=== PATIENT | female | born 1955 | race Caucasian/White ===

== ENCOUNTER 2024-11-16 12:39 | Emergency (ER) | payer MEDICARE, MEDICAID, SELFPAY ==
[2024-11-16 12:52] VITALS: BP 135/93; PULSE 122; TEMP 36.6; O2SAT 98; BMI 24.2
--- NOTE | 2024-11-16 13:05 | ED.GENADUL1 ---
HPI HPI - General Adult General Chief complaint: Extremity Injury, Lower Stated complaint: LT KNEE PAIN Time Seen by Provider: 11/16/24 12:54 Source: patient Mode of arrival: walk-in History of Present Illness HPI narrative: Patient states she fell outdoors on November 07 and indoors on November 12 injuring the left knee each time. Most of her pain is present medially. She has been using a neoprene sleeve to stabilize the knee. Sometimes the knee feels like it is locking up on her and at times it feels unstable. She tried using Voltaren gel a couple times but did not help much. She states that she has better pain relief with [place] balm. She has a history of breast cancer currently receiving monthly IV chemotherapy. Related Data Allergies Allergy/AdvReac Type Severity Reaction Status Date / Time Sulfa (Sulfonamide Allergy Severe Rash Verified 11/16/24 12:52 Antibiotics) narcotics AdvReac Intermediate Vomiting Uncoded 11/16/24 12:52 Opioid HPI Opioid Management Most Recent Opioid Data: No Data to Display Review of Systems ROS Status of ROS 10 or more systems reviewed and unremarkable except as noted in history and below PFSH PFSH Social History Little interest or pleasure in doing things: not at all Feeling down, depressed, or hopeless: not at all Exam Narrative Exam Narrative: Focused physical examination is carried out of the lower extremities. Patient does not have a palpable effusion of the left knee but she has some synovial bogginess and puffiness around the left knee. Range of motion is intact and there is no obvious instability. Tenderness is most marked over the medial joint line. There is no calf tenderness or unilateral leg swelling. Constitutional Vital Signs, click to edit/add: Last Vital Signs Temp 98 F 11/16/24 12:52 Pulse 122 H 11/16/24 12:52 Resp 16 11/16/24 12:52 BP 135/93 H 11/16/24 12:52 Pulse Ox 98 11/16/24 12:52 O2 Del Method Room Air 11/16/24 12:52 Course Vital Signs Vital signs: Vital Signs Temperature 98 F 11/16/24 12:52 Pulse Rate 122 H 11/16/24 12:52 Respiratory Rate 16 11/16/24 12:52 Blood Pressure 135/93 H 11/16/24 12:52 Pulse Oximetry 98 11/16/24 12:52 Oxygen Delivery Method Room Air 11/16/24 12:52 Temperature 98 F 11/16/24 12:52 Pulse Rate 122 H 11/16/24 12:52 Respiratory Rate 16 11/16/24 12:52 Blood Pressure 135/93 H 11/16/24 12:52 Pulse Oximetry 98 11/16/24 12:52 Oxygen Delivery Method Room Air 11/16/24 12:52 Medical Decision Making MDM Narrative Medical decision making narrative: Patient presents with persistent left knee pain and history of couple recent falls. X-rays do not reveal fracture but there is arthritis with narrowing of the medial compartment where most of her pain is localized. She is referred to outpatient orthopedics follow-up. She is to return anytime for worsening symptoms. Discharge Plan Discharge Chief Complaint: Extremity Injury, Lower Clinical Impression: Internal derangement of left knee Patient Disposition: Home, Self-Care Time of Disposition Decision: 15:02 Condition: Good Mode of Transportation: Private Vehicle Print Language: Polish Instructions: Knee Sprain (ED) Additional Instructions: You may continue using [place] balm for pain. Follow-up with graphics production specialist after the weekend for further management. Return for worsening symptoms. Referrals: Physician,Non-Staff, [Primary Care Provider] - 1 week Kaleb Win MD [Physician] - 1 week
[2024-11-16 15:11] VITALS: PULSE 93; O2SAT 99
== END 2024-11-16 15:11 | disposition home or self-care (01) ==
PROVIDERS: Emergency Provider Emergency Medicine
DX: M23.92 Unspecified internal derangement of left knee (principal); C50.919 Malignant neoplasm of unspecified site of unspecified female breast; Z79.60 Long term (current) use of unspecified immunomodulators and immunosuppressants
CPT/HCPCS: 73562; 99283